=== PATIENT | female | born 1940 | race American Indian/Alaskan Native ===

== ENCOUNTER 2017-07-04 13:15 | Outpatient (CLI) | payer MEDICARE ==
--- NOTE | 2017-07-04 17:04 | XRay Report ---
FINAL REPORT EXAM: XR SHOULDER 2+V LT HISTORY: SHOULDER PAIN TECHNIQUE: AP, Y, and oblique views of the left shoulder PRIORS: None. FINDINGS: There is no evidence of acute fracture or dislocation. The bony mineralization is normal. Soft tissues are unremarkable. Joint spaces are maintained. There is spurring off the superior and inferior aspects of the distal clavicle which can be associated with rotator cuff injury. IMPRESSION: No acute abnormality identified in the left shoulder.
== END 2017-07-04 13:16 | disposition home or self-care (01) ==
LOC: SPVIMAG 13:15
PROVIDERS: ATTEND Orthopaedic Surgery Sports Medicine
DX: M25.512 Pain in left shoulder (principal)